=== PATIENT | female | born 1985 | race Caucasian/White ===

== ENCOUNTER 2023-06-28 08:50 | Outpatient (AMB) | payer OTHER, SELFPAY ==
--- NOTE | 2023-06-28 08:52 | AM.OFFWIN_ITS ---
Intake Vital Signs 06/28/23 08:53 Height 5 ft 2 in Weight 121 lb BMI 22.1 BP 118/72 Blood Pressure Location Lt brachial Position Sitting Pulse 78 Pulse Source Pulse Oximeter Temp 97.8 F Temp Source Temporal Artery Scan Pulse Oximetry (%) 97 Oxygen Delivery Method Room Air Intake Visit Reasons: [employer] sinus/ear infection (lobby) Intake Note: pt is here today for sinus ear infection started 2 weeks ago Patient Tobacco Use Status: Never used Tobacco Allergies amoxicillin Allergy (Mild, Verified 06/28/23 08:57) Rash benzonatate Allergy (Mild, Verified 06/28/23 08:57) throat close Do you need a note to return to daycare/school/sports/work: No HPI HPI Comments History of Present Illness Details 37 y/o female patient who presents to [facility] in clinic with c/o Sinus pressure and left ear pain. Reports feeling sinus pressure, nasal congestion and sneezing x 2 weeks. She has been using Flonase and Zyrtec with minimal relief. Reports that Left ear pain started last night. Rates the pain at 10/10. She has been taking Advil and Acetaminophen with some relief. [facility] Social History Patient Tobacco Use Status: Never used Tobacco Review of Systems Const All systems reviewed & are unremarkable except as noted in HPI and below Physical Exam Vital Signs: Last Vital Signs Temp 97.8 F 06/28/23 08:53 Pulse 78 06/28/23 08:53 BP 118/72 06/28/23 08:53 Pulse Ox 97 06/28/23 08:53 Oxygen Delivery Method Room Air 06/28/23 08:53 BMI result Body Mass Index 22.1 Const General: comfortable and no acute distress Orientation/consciousness: patient oriented x3 HEENT Head: Yes normocephalic Ears: external ears normal, TM normal on the right and TM abnormal erythematous on the left, with fluid behind the TM on the left and retracted on the left General nose exam: No nasal discharge present and Abnormal mucous membranes and turbinates present pale Face and sinus: Yes sinuses nontender Mouth: moist mucous membranes Throat: Yes posterior oropharynx normal Resp Effort & Inspection: normal respiratory effort and able to speak in complete sentences Auscultation: clear to auscultation bilaterally, no crackles, no rales, no rhonchi and no wheezes Cardio Rate: regular rate Rhythm: regular rhythm Neuro General: patient oriented x3, gait normal and moves all extremities Psych Speech and movement: Normal speech and movement present Attitude: cooperative Assessment & Plan Assessment & Plan (1) Otitis media, left: Code(s): H66.92 - Otitis media, unspecified, left ear Qualifiers: Otitis media type: unspecified Qualified Code(s): H66.92 - Otitis media, unspecified, left ear Plan: -OTC Claritin and Flonase - Acetaminophen for pain relief - Take Abx as directed. - RTC if not better in 3 days. Medications: New acetaminophen 1,000 mg (2 x 500 mg) PO Q6H PRN 30 caps 0RF pain (scale score 7- 10) H66.92 - Otitis media, unspecified, left ear doxycycline hyclate 100 mg PO Q12H 14 caps 0RF 7 days H66.92 - Otitis media, unspecified, left ear Coding Level of Care Code New Pt Level 3 (30572) Diagnoses Left otitis media, unspecified otitis media type H66.92 Otitis media type: unspecified Time Spent (min) 15
[2023-06-28 08:53] VITALS: BP 118/72; PULSE 78; TEMP 36.6; O2SAT 97; BMI 22.1
== END 2023-06-28 09:58 | disposition home or self-care (01) ==
PROVIDERS: PCP Physician Assistant; Visit Provider Nurse Practitioner Family
DX: H66.92 Otitis media, unspecified, left ear (principal)
CPT/HCPCS: 99203